=== PATIENT | female | born 1985 | race Caucasian/White ===

== ENCOUNTER 2017-06-29 21:23 | Emergency (ER) | payer BC, OTHER ==
[2017-06-29 21:43] VITALS: RESP 18
--- NOTE | 2017-06-29 21:50 | ED ---
General Adult HPI - General Chief complaint: Syncope Stated complaint: Syncope Time Seen by Provider: 06/29/17 21:49 Source: patient Mode of arrival: ambulatory Limitations: no limitations - History of Present Illness Initial comments: Apoorva is a previously healthy 32-year-old female who presents the emergency department today for evaluation after syncopal episode that occurred at [facility] earlier in the evening. Patient reports that she had a very busy day at work today, she reports that she was running around all day and never had an opportunity to eat and doesn't believe she drink much throughout the day. This evening she agreed to accompany her sister and her sister's children to buddhism for rash Tuesday. Patient states that she is feeling quite fatigued but decided to go to buddhism and she had promised her family she would. Patient reports that she was at buddhism, they were kneeling in the buddhism. When she began to feel very lightheaded and nauseated. Patient advised her niece that she felt like she was given throw up and the patient's sister leaned over to check on her. At that time the patient had an apparent syncopal episode in which she slumped to her side and was assisted to the ground. Patient was immediately assisted by multiple bystanders one of which reported that he was a coagulating bath operator. Patient sister reports that the patient appeared very blue and didn' t seem to be breathing, she states that the coagulating bath operator's lap the patient and the face and the patient immediately took a deep breath and then asked why everybody was standing around her. Patient reports that she recalls kneeling at the pew and recalls waking up but does not recall passing out. Patient does have a history of syncopal episode in the past, however this was attributed with heat exhaustion. Patient reports that after syncopal episode they made the decision to leave buddhism, they stopped at [place] and she had to [employer] [place]. They then went to her sister's house where they dropped off her sister's children. At that time the patient made the decision not to come to the hospital because she felt well. However the patient's mother who is a nurse called the sister and advised her to bring the patient to the emergency department for further evaluation. Patient was reluctantly brought here by her sister. Patient reports a prior to the event she did not experience any chest pain, palpitations, shortness of breath or diaphoresis. She reports that she felt nauseated but did not vomit. Patient denies any personal cardiac history. Her sister states that mother told them that the patient was born with the heart murmur, patient has never had this followed up on. Patient is not on any estrogen therapy, she has no history of PE or DVTs. She has no recent long trips or immobilization. She does report a family history of her mother having developed a DVT after her leg was immobilized, her mother has no history of unprovoked DVTs or history of clotting disorder they are aware of. - Related Data Home Medications Medication Instructions Recorded Confirmed No Known Home Medications [No 06/29/17 06/29/17 Known Home Medications] Allergies Allergy/AdvReac Type Severity Reaction Status Date / Time bee venom protein (honey bee) Allergy Swelling Verified 06/29/17 22:13 Review of Systems ROS Statement: Those systems with pertinent positive or pertinent negative responses have been documented in the HPI. ROS Other: All systems not noted in ROS Statement are negative. Constitutional: Denies: fever Eyes: Denies: vision change ENT: Denies: throat pain Respiratory: Denies: cough, dyspnea Cardiovascular: Denies: chest pain, palpitations, dyspnea on exertion, orthopnea Endocrine: Denies: fatigue Gastrointestinal: Reports: nausea. Denies: abdominal pain, vomiting Genitourinary: Denies: dysuria, abnormal menses Musculoskeletal: Denies: back pain Skin: Denies: rash, lesions Neurological: Reports: headache, other (syncope). Denies: numbness, paresthesias, confusion, abnormal gait, vertigo Psychiatric: Denies: anxiety, depression Hematological/Lymphatic: Denies: easy bleeding Past Medical History Additional Past Medical History / Comment(s): murmur, palpitation History of Any Multi-Drug Resistant Organisms: None Reported Past Surgical History: No Surgical Hx Reported Past Psychological History: No Psychological Hx Reported Smoking Status: Current every day smoker Past Alcohol Use History: None Reported Past Drug Use History: None Reported, Unable to Obtain General Exam Limitations: no limitations General appearance: alert, in no apparent distress Head exam: Present: atraumatic, normocephalic Eye exam: Present: normal appearance, PERRL ENT exam: Present: normal exam Neck exam: Present: normal inspection. Absent: tenderness, meningismus, lymphadenopathy Respiratory exam: Present: normal lung sounds bilaterally. Absent: respiratory distress Cardiovascular Exam: Present: regular rate, normal rhythm, systolic murmur GI/Abdominal exam: Present: soft. Absent: distended, tenderness, guarding, rebound Rectal exam: Present: deferred Extremities exam: Present: normal inspection, full ROM Back exam: Present: normal inspection, full ROM Neurological exam: Present: alert, oriented X3, CN II-XII intact. Absent: altered, motor sensory deficit Psychiatric exam: Present: normal affect, normal mood Skin exam: Present: warm, dry Course Vital Signs 06/29/17 06/29/17 06/30/17 21:37 23:29 00:20 Temperature 97.6 F 98.2 F Pulse Rate 84 76 83 Respiratory 18 18 18 Rate Blood Pressure 118/65 127/56 113/72 O2 Sat by Pulse 98 98 99 Oximetry Medical Decision Making - Medical Decision Making Patient was seen and evaluated, history was obtained from the patient and her sister Vital signs were reviewed EKG reveals a sinus rhythm with a rate of 86, normal axis, normal intervals, no acute ST elevations or depressions. There is noted to be atrial enlargement. At the time of initial evaluation patient is in no acute distress. Is been a number of hours since her syncopal event. She has eaten a large meal and is resting comfortably now. Per patient's mother's request labs including a troponin were ordered. Labs were reviewed, troponin negative, there are no significant abnormalities on the labs I advised the patient that considering that she has a murmur and has never seen cardiology or had an echo she needs to follow up with primary care for referral to cardiology. 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 I advised the patient that she should take tomorrow off work and make sure she gets admitted sleep. I discussed with her the importance of hydration. Advised to return to the emergency department for any recurrent episodes of syncope. All questions pertaining to care were answered to the best my ability the patient was discharged home in stable condition. - Lab Data Result diagrams: 06/29/17 22:54 06/29/17 22:54 Lab Results 06/29/17 06/29/17 06/29/17 Range/Units 22:54 22:54 22:54 WBC 9.9 (3.8-10.6) k/uL RBC 5.36 (3.80-5.40) m/uL Hgb 15.8 (11.4-16.0) gm/dL Hct 48.4 H (34.0-46.0) % MCV 90.3 (80.0-100.0) fL MCH 29.5 (25.0-35.0) pg MCHC 32.7 (31.0-37.0) g/dL RDW 13.1 (11.5-15.5) % Plt Count 341 (150-450) k/uL Neutrophils % 75 % Lymphocytes % 17 % Monocytes % 5 % Eosinophils % 2 % Basophils % 1 % Neutrophils # 7.4 (1.3-7.7) k/uL Lymphocytes # 1.6 (1.0-4.8) k/uL Monocytes # 0.5 (0-1.0) k/uL Eosinophils # 0.2 (0-0.7) k/uL Basophils # 0.1 (0-0.2) k/uL Sodium 141 (137-145) mmol/L Potassium 4.4 (3.5-5.1) mmol/L Chloride 103 (98-107) mmol/L Carbon Dioxide 24 (22-30) mmol/L Anion Gap 14 mmol/L BUN 16 (7-17) mg/dL Creatinine 0.80 (0.52-1.04) mg/dL Est GFR (MDRD) Af Amer >60 (>60 ml/min/1.73 sqM) Est GFR (MDRD) Non-Af >60 (>60 ml/min/1.73 sqM) Glucose 97 (74-99) mg/dL Calcium 10.1 (8.4-10.2) mg/dL Troponin I (0.000-0.034) ng/mL Urine Color Urine Appearance (Clear) Urine pH (5.0-8.0) Ur Specific [place] (1.001-1.035) Urine Protein (Negative) Urine Glucose (UA) (Negative) Urine Ketones (Negative) Urine Blood (Negative) Urine Nitrite (Negative) Urine Bilirubin (Negative) Urine Urobilinogen (<2.0) mg/dL Ur Leukocyte Esterase (Negative) Urine RBC (0-5) /hpf Urine WBC (0-5) /hpf Ur Squamous Epith Cells (0-4) /hpf Urine Mucus (None) /hpf Urine HCG, Qual Not Detected (Not Detectd) 02/14/18 02/14/18 Range/Units 22:54 22:54 WBC (3.8-10.6) k/uL RBC (3.80-5.40) m/uL Hgb (11.4-16.0) gm/dL Hct (34.0-46.0) % MCV (80.0-100.0) fL MCH (25.0-35.0) pg MCHC (31.0-37.0) g/dL RDW (11.5-15.5) % Plt Count (150-450) k/uL Neutrophils % % Lymphocytes % % Monocytes % % Eosinophils % % Basophils % % Neutrophils # (1.3-7.7) k/uL Lymphocytes # (1.0-4.8) k/uL Monocytes # (0-1.0) k/uL Eosinophils # (0-0.7) k/uL Basophils # (0-0.2) k/uL Sodium (137-145) mmol/L Potassium (3.5-5.1) mmol/L Chloride (98-107) mmol/L Carbon Dioxide (22-30) mmol/L Anion Gap mmol/L BUN (7-17) mg/dL Creatinine (0.52-1.04) mg/dL Est GFR (MDRD) Af Amer (>60 ml/min/1.73 sqM) Est GFR (MDRD) Non-Af (>60 ml/min/1.73 sqM) Glucose (74-99) mg/dL Calcium (8.4-10.2) mg/dL Troponin I <0.012 (0.000-0.034) ng/mL Urine Color Yellow Urine Appearance Cloudy H (Clear) Urine pH 5.5 (5.0-8.0) Ur Specific [place] 1.025 (1.001-1.035) Urine Protein Trace H (Negative) Urine Glucose (UA) Negative (Negative) Urine Ketones Negative (Negative) Urine Blood Moderate H (Negative) Urine Nitrite Negative (Negative) Urine Bilirubin Negative (Negative) Urine Urobilinogen 2.0 (<2.0) mg/dL Ur Leukocyte Esterase Negative (Negative) Urine RBC 5 (0-5) /hpf Urine WBC 5 (0-5) /hpf Ur Squamous Epith Cells 6 H (0-4) /hpf Urine Mucus Moderate H (None) /hpf Urine HCG, Qual (Not Detectd) Disposition Clinical Impression: Fainting spell Disposition: HOME SELF-CARE Condition: Good Referrals: Robbi Snell MD [STAFF PHYSICIAN] - 1-2 days Laney Young MD [REFERRING] - 1-2 days Evie Toussaint MD [REFERRING] - 1-2 days Time of Disposition: 23:54
[2017-06-29 23:07] LABS: Basophils # (A) 0.1 k/uL (0-0.2); Basophils % (A) 1 %; Eosinophils # (A) 0.2 k/uL (0-0.7); Eosinophils % (A) 2 %; HCT 48.4 % (34.0-46.0); HGB 15.8 gm/dL (11.4-16.0); Lymphocytes # (A) 1.6 k/uL (1.0-4.8); Lymphocytes % (A) 17 %; MCH 29.5 pg (25.0-35.0); MCHC 32.7 g/dL (31.0-37.0); MCV 90.3 fL (80.0-100.0); Mean Platelet Volume 6.9; Monocytes # (A) 0.5 k/uL (0-1.0); Monocytes % (A) 5 %; Neutrophils # (A) 7.4 k/uL (1.3-7.7); Neutrophils % (A) 75 %; Platelet Count 341 k/uL (150-450); RBC 5.36 m/uL (3.80-5.40); RDW 13.1 % (11.5-15.5); WBC 9.9 k/uL (3.8-10.6)
[2017-06-29 23:11] LABS: Appearance,Urine Cloudy (Clear); Bilirubin,Urine Negative (Negative); Blood,Urine Moderate (Negative); Color,Urine Yellow; Glucose,Urine (UA) Negative (Negative); Ketones,Urine Negative (Negative); Leukocyte Esterase,Urine Negative (Negative); Mucus,Urine Moderate /hpf; Nitrite,Urine Negative (Negative); PH, Urine 5.5 (5.0-8.0); Protein,Urine Trace (Negative); RBC,Urine 5 /hpf (0-5); Specific Gravity,Urine 1.025 (1.001-1.035); Squamous Epithelial Cell,Urine 6 /hpf (0-4); WBC,Urine 5 /hpf (0-5)
[2017-06-29 23:15] LABS: Anion Gap 14 mmol/L; Blood Urea Nitrogen 16 mg/dL (7-17); Calcium 10.1 mg/dL (8.4-10.2); Carbon Dioxide 24 mmol/L (22-30); Chloride 103 mmol/L (98-107); Glucose 97 mg/dL (74-99); Potassium 4.4 mmol/L (3.5-5.1); Sodium 141 mmol/L (137-145)
[2017-06-30 00:22] VITALS: BP 113/72; PULSE 83; TEMP 98.2
== END 2017-06-30 00:22 | disposition home or self-care (01) ==
LOC: EC 21:23
DX: R55 Syncope and collapse (principal); I51.7 Cardiomegaly; R01.1 Cardiac murmur, unspecified; R42 Dizziness and giddiness; R11.0 Nausea; F17.200 Nicotine dependence, unspecified, uncomplicated; Z91.018 Allergy to other foods
CPT/HCPCS: 36415; 80048; 81001; 81025; 84484; 85025; 93005; 99284

== ENCOUNTER 2019-04-06 07:54 | Emergency (ER) | payer BC, OTHER ==
[2019-04-06 08:00] VITALS: TEMP 98.2
[2019-04-06] MEDS ORDERED: SODIUM CHLORIDE 0.9% 1,000 ML IV ONE (08:03)
--- NOTE | 2019-04-06 08:05 | ED ---
Abdominal Pain HPI - General Chief Complaint: Abdominal Pain Stated Complaint: Abd Pain Time Seen by Provider: 04/06/19 08:04 Source: patient Mode of arrival: ambulatory Limitations: no limitations - History of Present Illness Initial Comments: 33-year-old female with hx of previous [place] presenting today for chief complaint of left mid to lower abdominal pain. Patient states for the past day since yesterday evening she has had left lower abdominal discomfort. She states it is not in the pelvic region denies vaginal bleeding or discharge. Patient denies nausea chest pain shortness of breath. Denies diarrhea melena hematochezia. Patient denies fever, history of diverticulitis. Patient denies and no other complaints. Patient describes the pain is sharp reproducible when she pushes on the abdomen to the left of the bellybutton. Denies any radiation. Upon arrival patient VS stable she appears well there is no distress. - Related Data Home Medications Medication Instructions Recorded Confirmed Amethia-Lo Control 1 tab PO DAILY 04/06/19 04/06/19 Ibuprofen [Advil] 400 mg PO Q8HR PRN 04/06/19 04/06/19 Allergies Allergy/AdvReac Type Severity Reaction Status Date / Time bee venom protein (honey bee) Allergy Swelling Verified 04/06/19 08:47 Review of Systems ROS Statement: Those systems with pertinent positive or pertinent negative responses have been documented in the HPI. ROS Other: All systems not noted in ROS Statement are negative. Past Medical History Past Medical History: Myocardial Infarction ([place]) Additional Past Medical History / Comment(s): ,murmur, palpitation, Migraines, History of Any Multi-Drug Resistant Organisms: None Reported Past Surgical History: No Surgical Hx Reported Past Psychological History: No Psychological Hx Reported Smoking Status: Former smoker Past Alcohol Use History: None Reported Past Drug Use History: None Reported, Unable to Obtain General Exam - General Exam Comments Initial Comments: General: The patient is awake and alert, in no distress, and does not appear acutely ill. Eye: +3 mm pupils are equal, round and reactive to light, extra-ocular movements are intact. No nystagmus. There is normal conjunctiva bilaterally. No signs of icterus. Ears, nose, mouth and throat: There are moist mucous membranes and no oral lesions. Neck: The neck is supple, there is no tenderness or JVD. Cardiovascular: There is a regular rate and rhythm. Murmur, no rub or gallop is appreciated. Respiratory: Lungs are clear to auscultation, respirations are non-labored, breath sounds are equal. No wheezes, stridor, rales, or rhonchi. Gastrointestinal: Soft, non-distended, tender to palpation just to the left of umbilicus, the remaining abdomen is without masses or organomegaly noted. There is no rebound or guarding present. Musculoskeletal: Normal ROM, no tenderness. Strength 5/5. Sensation intact. Radial pulses equal bilaterally 2+. Neurological: A&O x 3. CN II-XII intact grossly, There are no obvious motor or sensory deficits. Coordination appears grossly intact. Speech is normal. Skin: Skin is warm and dry and no rashes or lesions are noted. No LE edema. Psychiatric: Cooperative, appropriate mood & affect, normal judgment. Limitations: no limitations Course Vital Signs 04/06/19 04/06/19 07:57 09:55 Temperature 98.2 F Pulse Rate 88 71 Respiratory 20 16 Rate Blood Pressure 142/86 111/83 O2 Sat by Pulse 98 98 Oximetry - Reevaluation(s) Reevaluation #1: Upon reevaluation patient's pain controlled 2. Small bowel no distress discussed CT findings patient at this time is agreeable discharge with return parameters and outpatient primary care follow-up Medical Decision Making - Medical Decision Making 33-year-old female presenting today for chief complaint of abdominal pain. Mid left-sided abdominal pain. No lower pelvic pain. CT no acute findings. Vital signs stable pain controlled in the ER. It is reproducible on abdominal exam however there is no rebound or guarding or signs acute abdomen. At this time I feel patient is stable for discharge with outpatient primary care follow-up. Return parameters were discussed patient verbalized understanding is agreeable with discharge and return parameters discussed case attending provider including patient's history Dr. Brennan is agreeable care plan at this time - Lab Data Result diagrams: 04/06/19 08:20 04/06/19 08:20 Lab Results 04/06/19 04/06/19 04/06/19 Range/Units 08:20 08:20 08:20 WBC 5.1 (3.8-10.6) k/uL RBC 4.98 (3.80-5.40) m/uL Hgb 15.3 (11.4-16.0) gm/dL Hct 45.3 (34.0-46.0) % MCV 90.8 (80.0-100.0) fL MCH 30.7 (25.0-35.0) pg MCHC 33.8 (31.0-37.0) g/dL RDW 12.5 (11.5-15.5) % Plt Count 295 (150-450) k/uL Neutrophils % 47 % Lymphocytes % 38 % Monocytes % 7 % Eosinophils % 4 % Basophils % 3 % Neutrophils # 2.4 (1.3-7.7) k/uL Lymphocytes # 1.9 (1.0-4.8) k/uL Monocytes # 0.4 (0-1.0) k/uL Eosinophils # 0.2 (0-0.7) k/uL Basophils # 0.2 (0-0.2) k/uL Sodium 140 (137-145) mmol/L Potassium 4.5 (3.5-5.1) mmol/L Chloride 108 H (98-107) mmol/L Carbon Dioxide 20 L (22-30) mmol/L Anion Gap 12 mmol/L BUN 21 H (7-17) mg/dL Creatinine 0.70 (0.52-1.04) mg/dL Est GFR (CKD-EPI)AfAm >90 (>60 ml/min/1.73 sqM) Est GFR (CKD-EPI)NonAf >90 (>60 ml/min/1.73 sqM) Glucose 91 (74-99) mg/dL Calcium 9.8 (8.4-10.2) mg/dL Total Bilirubin 0.7 (0.2-1.3) mg/dL AST 19 (14-36) U/L ALT 29 (9-52) U/L Alkaline Phosphatase 38 (38-126) U/L Total Protein 7.2 (6.3-8.2) g/dL Albumin 4.3 (3.5-5.0) g/dL Lipase 61 (23-300) U/L Urine Color Urine Appearance (Clear) Urine pH (5.0-8.0) Ur Specific [place] (1.001-1.035) Urine Protein (Negative) Urine Glucose (UA) (Negative) Urine Ketones (Negative) Urine Blood (Negative) Urine Nitrite (Negative) Urine Bilirubin (Negative) Urine Urobilinogen (<2.0) mg/dL Ur Leukocyte Esterase (Negative) Urine RBC (0-5) /hpf Urine WBC (0-5) /hpf Ur Squamous Epith Cells (0-4) /hpf Urine Bacteria (None) /hpf Urine Mucus (None) /hpf Urine HCG, Qual Not Detected (Not Detectd) 04/06/19 Range/Units 08:20 WBC (3.8-10.6) k/uL RBC (3.80-5.40) m/uL Hgb (11.4-16.0) gm/dL Hct (34.0-46.0) % MCV (80.0-100.0) fL MCH (25.0-35.0) pg MCHC (31.0-37.0) g/dL RDW (11.5-15.5) % Plt Count (150-450) k/uL Neutrophils % % Lymphocytes % % Monocytes % % Eosinophils % % Basophils % % Neutrophils # (1.3-7.7) k/uL Lymphocytes # (1.0-4.8) k/uL Monocytes # (0-1.0) k/uL Eosinophils # (0-0.7) k/uL Basophils # (0-0.2) k/uL Sodium (137-145) mmol/L Potassium (3.5-5.1) mmol/L Chloride (98-107) mmol/L Carbon Dioxide (22-30) mmol/L Anion Gap mmol/L BUN (7-17) mg/dL Creatinine (0.52-1.04) mg/dL Est GFR (CKD-EPI)AfAm (>60 ml/min/1.73 sqM) Est GFR (CKD-EPI)NonAf (>60 ml/min/1.73 sqM) Glucose (74-99) mg/dL Calcium (8.4-10.2) mg/dL Total Bilirubin (0.2-1.3) mg/dL AST (14-36) U/L ALT (9-52) U/L Alkaline Phosphatase (38-126) U/L Total Protein (6.3-8.2) g/dL Albumin (3.5-5.0) g/dL Lipase (23-300) U/L Urine Color Yellow Urine Appearance Cloudy H (Clear) Urine pH 6.0 (5.0-8.0) Ur Specific [place] 1.041 H (1.001-1.035) Urine Protein 1+ H (Negative) Urine Glucose (UA) Negative (Negative) Urine Ketones 2+ H (Negative) Urine Blood Small H (Negative) Urine Nitrite Negative (Negative) Urine Bilirubin Negative (Negative) Urine Urobilinogen 2.0 (<2.0) mg/dL Ur Leukocyte Esterase Negative (Negative) Urine RBC 15 H (0-5) /hpf Urine WBC 2 (0-5) /hpf Ur Squamous Epith Cells 25 H (0-4) /hpf Urine Bacteria Rare H (None) /hpf Urine Mucus Few H (None) /hpf Urine HCG, Qual (Not Detectd) Disposition Clinical Impression: Left lower quadrant abdominal pain Disposition: HOME SELF-CARE Condition: Good Instructions (If sedation given, give patient instructions): Abdominal Pain (ED) Additional Instructions: Please use medication as discussed. Please follow-up with family doctor in the next 2 days.. Please return to emergency room if the symptoms increase or worsen or for any other concerns. Is patient prescribed a controlled substance at d/c from ED?: No Referrals: Jose Hitchcock MD [Primary Care Provider] - 1-2 days Time of Disposition: 09:53
[2019-04-06] MEDS ORDERED: MORPHINE SULFATE 4 MG/ML SYRINGE IVP STA (08:12)
[2019-04-06] MEDS ORDERED: SODIUM CHLORIDE 0.9% 1,000 ML IV SCH (08:15)
[2019-04-06] MEDS ORDERED: ONDANSETRON 4 MG/2 ML VIAL IVP STA (08:36)
[2019-04-06 08:45] LABS: Basophils # (A) 0.2 k/uL (0-0.2); Basophils % (A) 3 %; Eosinophils # (A) 0.2 k/uL (0-0.7); Eosinophils % (A) 4 %; HCT 45.3 % (34.0-46.0); HGB 15.3 gm/dL (11.4-16.0); Lymphocytes # (A) 1.9 k/uL (1.0-4.8); Lymphocytes % (A) 38 %; MCH 30.7 pg (25.0-35.0); MCHC 33.8 g/dL (31.0-37.0); MCV 90.8 fL (80.0-100.0); Mean Platelet Volume 6.7; Monocytes # (A) 0.4 k/uL (0-1.0); Monocytes % (A) 7 %; Neutrophils # (A) 2.4 k/uL (1.3-7.7); Neutrophils % (A) 47 %; Platelet Count 295 k/uL (150-450); RBC 4.98 m/uL (3.80-5.40); RDW 12.5 % (11.5-15.5); WBC 5.1 k/uL (3.8-10.6)
[2019-04-06 08:55] LABS: ALT 29 U/L (9-52); AST 19 U/L (14-36); African American GFR (CKD) >90 (>60 ml/min/1.73 sqM); Albumin 4.3 g/dL (3.5-5.0); Alkaline Phosphatase 38 U/L (38-126); Anion Gap 12 mmol/L; Blood Urea Nitrogen 21 mg/dL (7-17); Calcium 9.8 mg/dL (8.4-10.2); Carbon Dioxide 20 mmol/L (22-30); Chloride 108 mmol/L (98-107); Glucose 91 mg/dL (74-99); Non-African American GFR(CKD) >90 (>60 ml/min/1.73 sqM); Potassium 4.5 mmol/L (3.5-5.1); Sodium 140 mmol/L (137-145); Total Bilirubin 0.7 mg/dL (0.2-1.3); Total Protein 7.2 g/dL (6.3-8.2)
[2019-04-06 09:06] LABS: Appearance,Urine Cloudy (Clear); Bacteria,Urine Rare /hpf; Bilirubin,Urine Negative (Negative); Blood,Urine Small (Negative); Color,Urine Yellow; Glucose,Urine (UA) Negative (Negative); Ketones,Urine 2+ (Negative); Leukocyte Esterase,Urine Negative (Negative); Mucus,Urine Few /hpf; Nitrite,Urine Negative (Negative); Protein,Urine 1+ (Negative); RBC,Urine 15 /hpf (0-5); Specific Gravity,Urine 1.041 (1.001-1.035); Squamous Epithelial Cell,Urine 25 /hpf (0-4)
--- NOTE | 2019-04-06 09:40 | CT ---
EXAMINATION TYPE: CT abdomen pelvis w con DATE OF EXAM: 04/06/2019 COMPARISON: None HISTORY: Abdominal pain, left lower quadrant pain CT DLP: 870.2 mGycm CONTRAST: CT scan of the abdomen and pelvis is performed without Oral Contrast and with IV Contrast, patient in jected with 100 mL of Isovue 300. FINDINGS: LUNG BASES-: No visible nodule. No infiltrate. LIVER/GB: No calcified gallstones. No space occupying hepatic lesion. Biliary tree is of normal ca liber. PANCREAS: No inflammation. No distinct mass. SPLEEN: No splenic enlargement. No lesion seen. ADRENALS: No nodule. No thickening. KIDNEYS/BLADDER: No hydronephrosis. No nephrolithiasis. No distinct renal mass. Urinary bladder g rossly unremarkable. BOWEL: Normal appendix. Normal bowel caliber. No inflammation. GENITAL ORGANS: No gross abnormality. LYMPH NODES: No greater than 1cm abdominal or pelvic lymph nodes are appreciated. AORTA: No significant abnormality. OSSEOUS STRUCTURES: No significant abnormality is seen. OTHER: No significant additional abnormality is seen. IMPRESSION: 1. No distinct abnormality to account for the patient's symptoms.
[2019-04-06 10:05] VITALS: BP 111/83; PULSE 71; RESP 16
== END 2019-04-06 09:55 | disposition home or self-care (01) ==
LOC: EC 07:54
DX: R10.32 Left lower quadrant pain (principal); I25.2 Old myocardial infarction; Z87.891 Personal history of nicotine dependence; Z79.3 Long term (current) use of hormonal contraceptives; Z91.048 Other nonmedicinal substance allergy status
CPT/HCPCS: 36415; 80053; 83690; 85025; 81001; 81025; 74177; 99284; 96374; 96375; 96361; J2270; J2405; Q9967

== ENCOUNTER 2020-02-27 06:20 | Day surgery (SDC) | payer OTHER ==
[2020-02-25 15:08] VITALS: BMI 27.4
--- NOTE | 2020-02-26 15:08 | P.HPOB ---
History of Present Illness H&P Date: 02/26/20 Chief Complaint: Menorrhagia with irregular cycle, family planning This is a 34 y.o. female, 0, who presents for dilatation and curettage with hysteroscopy and Novasure endometrial ablation along with laparoscopic bilateral tubal ligation via fulgaration due to menorrhagia with irregular cycle and family planning. She wants permanent sterilization. She has a history of menstrual migraines. We attempted to control her migraines with continuous control pills, but now she is bleeding at least 3 times during a 3 month period of time. Sometimes it only last 3 days, and sometimes it is 7+ days with clots and cramping. Her bleeding is unpredictable. She would like permanent surgical treatment to control her bleeding. OB Hx: G0. Sign Wirer Hx: No recent STDs, hx of trichomonas in past. Using BCPs for control. 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 Single, but in a senior care relationship. Review of Systems Constitutional: Denies chills, Denies fever Eyes: denies blurred vision, denies pain Ears, nose, mouth and throat: Denies sore throat Cardiovascular: Denies chest pain, Denies shortness of breath Respiratory: Denies cough Gastrointestinal: Denies abdominal pain, Denies diarrhea, Denies nausea, Denies vomiting Genitourinary: Reports menorrhagia, Reports pelvic pain, Denies dysuria, Denies hematuria Menstruation: Reports menses 8 or > days, Reports menses variable, Reports period heavy Musculoskeletal: Reports low back pain Integumentary: Denies pruritus, Denies rash Neurological: Reports headaches Psychiatric: Denies anxiety, Denies depression Endocrine: Denies fatigue Past Medical History Additional Past Medical History / Comment(s): "extremely heavy menses",murmur, palpitation, Migraines History of Any Multi-Drug Resistant Organisms: None Reported Past Surgical History: No Surgical Hx Reported Additional Past Surgical History / Comment(s): dental procedure Past Anesthesia/Blood Transfusion Reactions: No Reported Reaction Past Psychological History: No Psychological Hx Reported Smoking Status: Never smoker Past Alcohol Use History: Rare Past Drug Use History: None Reported - Past Family History Father Family Medical History: No Reported History Mother Family Medical History: Deep Vein Thrombosis (DVT) Additional Family Medical History / Comment(s): DVT post leg fracture Medications and Allergies Home Medications Medication Instructions Recorded Confirmed Type Amethia-Lo Control 1 tab PO QAM 04/06/19 02/27/20 History Allergies Allergy/AdvReac Type Severity Reaction Status Date / Time bee venom protein (honey bee) Allergy Swelling Verified 02/27/20 06:50 Exam Osteopathic Statement: *. No significant issues noted on an osteopathic structural exam other than those noted in the History and Physical/Consult. Intake and Output 02/25/20 02/26/20 02/26/20 22:59 06:59 14:59 Other: Weight 68.039 kg HEENT: within normal limits Heart: regular rate and rhythm Lungs: clear to auscultation bilaterally Abdomen: soft, non-tender Pelvic: uterus retroverted, non-tender, no adnexal masses or tenderness Extremities: neg. Marino's Assessment and Plan (1) Menorrhagia with irregular cycle Current Visit: No Status: Acute Code(s): N92.1 - EXCESSIVE AND FREQUENT MENSTRUATION WITH IRREGULAR CYCLE SNOMED Code(s): 313785161 (2) Family planning Current Visit: No Status: Acute Code(s): Z30.09 - ENCOUNTER FOR OT GENERAL CNSL AND ADVICE ON CONTRACEPTION SNOMED Code(s): 211313905 Plan: Proceed with dilatation and curettage with hysteroscopy and Novasure endometrial ablation with laparoscopic bilateral tubal ligation via fulgaration. I have discussed the risks, benefits, and alternative therapies for the above- mentioned procedure and for both sedation/anesthesia as well as necessary blood products administration, if indicated, as they pertain to this patient. The patient has indicated her understanding and acceptance of the risks and pro cedures discussed.
[~2020-02-27 06:20] MED LIST: DEXAMETHASONE SOD PHOSPHATE 10 MG/ML 1 ML VIAL IV ONE; HYDROmorphone 0.5 MG/0.5 ML SYRINGE IVP PRN; LACTATED RINGERS 1,000 ML IV SCH; LIDOCAINE 1% (10MG/ML) FOR IV START INTRADERMA PRN; MIDAZOLAM 2 MG/2 ML VIAL IV PRN; Pre Op ABX Message 1 EACH MISC MISCELLANE ONE
[2020-02-27] MEDS ORDERED: SCOPOLAMINE 1.5MG/72HR PATCH TRANSDERM ONE (07:08)
[2020-02-27] MEDS: ONDANSETRON 4 MG/2 ML VIAL IVP ONE ×2 (07:08→09:12)
[2020-02-27] MEDS ORDERED: GLYCOPYRROLATE 0.2 MG/ML 2 ML VIAL ONE (07:34)
[2020-02-27] MEDS ORDERED: KETOROLAC 15 MG/ML 1 ML VIAL ONE (07:34)
[2020-02-27] MEDS ORDERED: ROCURONIUM 10 MG/ML (10 ML VIAL) IV ONE (07:34)
[2020-02-27] MEDS ORDERED: NEOSTIGMINE 1 MG/ML 10 ML VIAL ONE (07:34)
[2020-02-27] MEDS ORDERED: LIDOCAINE 1% INJ 10MG/ML (20 ML MDV) ONE (07:34)
[2020-02-27] MEDS ORDERED: fentaNYL (PF) 50 MCG/ML 2 ML AMP ONE (07:34)
[2020-02-27] MEDS ORDERED: HYDROmorphone (PF) 1 MG/ML ONE (07:34)
[2020-02-27] MEDS ORDERED: MIDAZOLAM 2 MG/2 ML VIAL ONE (07:34)
[2020-02-27] MEDS ORDERED: PROPOFOL 10 MG/ML 20 ML VIAL IV ONE (07:34)
[2020-02-27] MEDS ORDERED: SUCCINYLCHOLINE CHLORIDE 100 MG/5 ML SYR IV ONE (07:34)
[2020-02-27] MEDS ORDERED: BUPIVACAINE (PF) 0.25% 30 ML VIAL SQ ONE ×2 (08:25→08:35)
--- NOTE | 2020-02-27 08:40 | P.OP ---
Date of Procedure: 02/27/20 Preoperative Diagnosis: Menorrhagia with irregular cycle, family planning Postoperative Diagnosis: Same Procedure(s) Performed: Dilation and curettage with hysteroscopy and NovaSure endometrial ablation Laparoscopic bilateral tubal ligation via fulguration Anesthesia: JERMAINE Surgeon: Leonila Penaloza Estimated Blood Loss (ml): 10 Pathology: other (Endometrial curettings) Condition: stable Disposition: same day Indications for Procedure: This is a 34 y.o. female, 0, who presents for dilatation and curettage with hysteroscopy and Novasure endometrial ablation along with laparoscopic bilateral tubal ligation via fulgaration due to menorrhagia with irregular cycle and family planning. She wants permanent sterilization. She has a history of menstrual migraines. We attempted to control her migraines with continuous control pills, but now she is bleeding at least 3 times during a 3 month period of time. Sometimes it only last 3 days, and sometimes it is 7+ days with clots and cramping. Her bleeding is unpredictable. She would like permanent surgical treatment to control her bleeding. Operative Findings: Uterus is sounded to 8 cm. Cervix is sounded to 3 cm. Upon hysteroscopy, a fairly normal appearance was noted and both tubal ostia were visualized. Minimal amount of endometrial curettings are obtained. Uterus is anteverted. Upon laparoscopy, a small uterine fibroid is noted in the right fundal region and a small fibroid is also noted in the posterior lower uterine segment area. There is a simple-appearing cyst on the left ovary, approximately 3 cm. The right ovary appears normal. Both tubes appear normal. The appendix is visualized and appears normal. The gallbladder also appears normal. Description of Procedure: The patient is taken to the operating room. She is placed in the dorsal lithotomy position after general anesthesia was given. She is prepped and draped in the normal sterile fashion. Bladder is drained with a catheter and then removed. Pelvic exam is performed under anesthesia. Uterus is found to be Anteverted with no adnexal masses. She is placed in slight Trendelenburg position. A right angle retractor is used to visualize the cervix. The anterior lip of the cervix is grasped with a single-tooth tenaculum. Cervix is sounded to 3 cm. Uterus is sounded to 5 cm. Cervix is gently dilated with Armstrong dilators until a hysteroscope could be passed. Hysteroscopy is performed using normal saline. The above noted findings are noted. Next a polyp forceps is introduced. A scant amount of tissue was obtained. Next medium-sized size sharp curette was placed. A minimal amount of endometrial curettings were obtained. Next NovaSure array was inserted into the endometrial cavity. Length was set at 5 cm and width was determined to be 2.5 cm. Next cavity assessment was completed and passed on the first try. Next NovaSure array was fired at 69 W for 58 seconds. Next the array was removed, inspected and then discarded. Next the hysteroscope was reinserted. Uniform charring was noted. Pictures were taken. Hysteroscope was removed. A kroner uterine manipulator is then inserted through the cervix and the balloon is inflated. Single-tooth tenaculum was removed from the anterior lip of the cervix. Minimal bleeding was noted. All other instruments removed from the vagina. Gloves are changed and attention is turned to the abdomen. A small stab incision was made with a scalpel in the infraumbilical fold. A towel clip was placed above the umbilicus for retraction. A 5 mm disposable bladeless trocar was then inserted into the peritoneal cavity under direct visualization. Once inside, pneumoperitoneum was achieved with CO2 gas. The insert was removed and the camera was placed. Intraperitoneal placement was confirmed. No bleeding was noted. Next the patient was placed in Trendelenburg position. A small stab incision was made suprapubically and a 5 mm disposable bladeless trocar was inserted into the peritoneal cavity under direct visualization. Once inside pelvic contents were inspected. The above noted findings are made and pictures are taken. Next a bipolar Kleppinger instrument was placed through the inferior trocar and the midportion of each tube was brought away from other structures and completely fulgurated on approximate 2-3 cm segment of each tube. Excellent hemostasis was noted. Pictures were taken. Pneumoperitoneum was released after the inferior trocar was removed under direct visualization. The upper trocar was then removed. The skin incisions were then closed with 4-0 Vicryl suture in a subcuticular fashion. A interrupted stitches placed on the inferior incision for hemostasis. Incisions were then injected with quarter percent Marcaine. Approximately 8 mL were used. Next the kroner uterine manipulator was removed. Minimal bleeding was noted. All sponge and needle counts are correct. The patient is then taken to recovery room in stable condition.
[2020-02-27 09:19] VITALS: TEMP 96.9
[2020-02-27] MEDS ORDERED: diphenhydrAMINE 50 MG/ML 1 ML VIAL IVP ONE (09:42)
[2020-02-27 10:26] VITALS: BP 125/74; PULSE 88; RESP 16
== END 2020-02-27 10:26 | disposition home or self-care (01) ==
LOC: OR 06:20
PROVIDERS: ATTEND Obstetrics & Gynecology
DX: N92.1 Excessive and frequent menstruation with irregular cycle (principal); Z30.2 Encounter for sterilization; D25.9 Leiomyoma of uterus, unspecified; N83.202 Unspecified ovarian cyst, left side; R01.1 Cardiac murmur, unspecified; R00.2 Palpitations; G43.909 Migraine, unspecified, not intractable, without status migrainosus; Z82.49 Family history of ischemic heart disease and other diseases of the circulatory system; Z79.3 Long term (current) use of hormonal contraceptives; Z91.030 Bee allergy status
CPT/HCPCS: 81025; 58563; 58670; J2250; J1200; J1100; J2710; J2405; J2001; J3010; J1170 ×2; J1885; J0330; J2704; 88305

== ENCOUNTER → 2023-05-11 | Outpatient (CLI) | payer BC ==
[2023-05-12 02:21] LABS: Basophils # (A) 0.07 X 10*3/uL (0.00-0.10); Basophils % (A) 1.1 %; Eosinophils # (A) 0.11 X 10*3/uL (0.04-0.35); Eosinophils % (A) 1.7 %; HCT 43.4 % (37.2-46.3); HGB 14.2 g/dL (12.0-15.0); Lymphocytes # (A) 2.31 X 10*3/uL (0.90-5.00); Lymphocytes % (A) 35.9 %; MCH 29.8 pg (27.0-32.0); MCHC 32.7 g/dL (32.0-37.0); MCV 91.2 FL (80.0-97.0); Mean Platelet Volume 10.2 FL (9.5-12.2); Monocytes # (A) 0.66 X 10*3/uL (0.20-1.00); Monocytes % (A) 10.2 %; NRBC Per 100 WBC 0 X 10*3/uL (0.00-0.01); Neutrophils # (A) 3.28 X 10*3/uL (1.80-7.70); Neutrophils % (A) 50.9 %; Platelet Count 319 X 10*3/uL (140-440); RBC 4.76 X 10*6/uL (4.10-5.20); RDW 12.9 % (11.5-14.5); WBC 6.44 X 10*3/uL (4.50-10.00)
[2023-05-12 02:44] LABS: BUN/Creat Ratio 17.71 Ratio (12.00-20.00); Blood Urea Nitrogen 12.4 mg/dL (9.0-27.0); Calcium 9.9 mg/dL (8.7-10.3); Carbon Dioxide 23.6 mmol/L (21.6-31.8); Chloride 103 mmol/L (96-109); Glucose 75 mg/dL (70-110); Potassium 4.7 mmol/L (3.5-5.5); Sodium 141 mmol/L (135-145)
== END | disposition home or self-care (01) ==
LOC: LABPAT 14:47
PROVIDERS: ATTEND Obstetrics & Gynecology
DX: Z01.812 Encounter for preprocedural laboratory examination (principal)
CPT/HCPCS: 80048; 85025

== ENCOUNTER → 2023-05-12 | Outpatient (CLI) | payer BC | END | disposition home or self-care (01) | LOC: LABPAT 14:22 | PROVIDERS: ATTEND Obstetrics & Gynecology | DX: Z01.812 Encounter for preprocedural laboratory examination (principal) | CPT/HCPCS: 86850; 86900; 86901 ==

== ENCOUNTER 2023-05-19 05:39 | Day surgery (SDC) | payer BC, OTHER ==
[2023-05-12 09:48] VITALS: BMI 26.2
--- NOTE | 2023-05-18 12:39 | P.HPOB ---
History of Present Illness H&P Date: 05/18/23 Chief Complaint: Menorrhagia with irregular cycle, post-endometrial ablation syndrome This is a 38 y.o. female, 0, who presents for total laparoscopic hysterectomy with bilateral salpingectomy with Davinci and diagnostic cystoscopy, possible total abdominal hysterectomy with bilateral salpingooophorectomy. She complains of heavy menses lasting 10-14 days. Her menses improved after her endometrial ablation for about 3 months, but now she's back to heavy periods. She wants definitive surgical treatment. 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 Social Hx: Works with [employer] in [employer]. Review of Systems Constitutional: Denies chills, Denies fever Eyes: denies blurred vision, denies pain Ears, nose, mouth and throat: Denies headache, Denies sore throat Cardiovascular: Denies chest pain, Denies shortness of breath Respiratory: Denies cough Gastrointestinal: Denies abdominal pain, Denies diarrhea, Denies nausea, Denies vomiting Genitourinary: Reports dysmenorrhea, Reports menorrhagia, Reports pelvic pain Menstruation: Reports menses 8 or > days, Reports period heavy Integumentary: Denies pruritus, Denies rash Neurological: Denies numbness, Denies weakness Psychiatric: Reports irritability (around menses), Denies anxiety, Denies depression Past Medical History Past Medical History: Myocardial Infarction ([place]) Additional Past Medical History / Comment(s): "Extremely heavy menses". Heart murmur, palpitations. Migraines. Last Myocardial Infarction Date:: 06/2016 History of Any Multi-Drug Resistant Organisms: None Reported Past Surgical History: Tubal Ligation Additional Past Surgical History / Comment(s): Dental procedure, D&C. Past Anesthesia/Blood Transfusion Reactions: No Reported Reaction, Motion Sickness Additional Past Anesthesia/Blood Transfusion Reaction / Comment(s): "Please give as little anesthesia as possible". Past Psychological History: No Psychological Hx Reported Smoking Status: Never smoker Past Alcohol Use History: Rare Past Drug Use History: None Reported - Past Family History Father Family Medical History: No Reported History Mother Family Medical History: Deep Vein Thrombosis (DVT) Additional Family Medical History / Comment(s): DVT post leg fracture. Medications and Allergies Home Medications Medication Instructions Recorded Confirmed Type Ibuprofen [Advil Migraine] 200 mg PO DIRECTED PRN 05/12/23 05/19/23 History Allergies Allergy/AdvReac Type Severity Reaction Status Date / Time bee venom protein (honey bee) Allergy Swelling Verified 05/19/23 05:55 latex Allergy Rash/Hives Verified 05/19/23 05:55 Exam Osteopathic Statement: *. No significant issues noted on an osteopathic structural exam other than those noted in the History and Physical/Consult. Intake and Output 05/17/23 05/18/23 05/18/23 22:59 06:59 14:59 Other: Weight 63.049 kg HEENT: within normal limits Heart: regular rate and rhythm Lungs: clear to auscultation bilaterally Abdomen: soft, non-tender Pelvic: uterus retroverted, non-tender, with 1st degree prolapse, no adnexal masses or tenderness Extremities: neg. Marino's. Assessment and Plan (1) Post endometrial ablation syndrome Current Visit: No Status: Acute Code(s): N99.85 - POST ENDOMETRIAL ABLATION SYNDROME SNOMED Code(s): 620885388 (2) Menorrhagia with irregular cycle Current Visit: No Status: Acute Code(s): N92.1 - EXCESSIVE AND FREQUENT MENSTRUATION WITH IRREGULAR CYCLE SNOMED Code(s): 069033074 Plan: Proceed with total laparoscopic hysterectomy with bilateral salpingectomy with Davinci and diagnostic cystoscopy, possible total abdominal hysterectomy with bilateral salpingooophorectomy. I have discussed the risks, benefits, and alternative therapies for the above- mentioned procedure and for both sedation/anesthesia as well as necessary blood products administration, if indicated, as they pertain to this patient. The patient has indicated her understanding and acceptance of the risks and procedures discussed.
[2023-05-19] MEDS ORDERED: DEXAMETHASONE SOD PHOSPHATE 4 MG/ML 1 ML VIAL IV ONE (05:49)
[2023-05-19] MEDS ORDERED: ONDANSETRON 4 MG/2 ML VIAL IVP ONE (05:49)
[2023-05-19] MEDS ORDERED: SCOPOLAMINE 1 MG/72 HR PATCH TRANSDERM ONE (05:49)
[2023-05-19] MEDS ORDERED: LACTATED RINGERS 1,000 ML IV SCH (05:49)
[2023-05-19] MEDS ORDERED: MIDAZOLAM 2 MG/2 ML VIAL IVP ONE (06:53)
[2023-05-19] MEDS ORDERED: MIDAZOLAM 2 MG/2 ML VIAL IV PRN (07:00)
[2023-05-19] MEDS ORDERED: HYDROmorphone 0.5 MG/0.5 ML SYRINGE IVP PRN (07:00)
[2023-05-19] MEDS ORDERED: MIDAZOLAM 2 MG/2 ML VIAL ONE (07:10)
[2023-05-19] MEDS ORDERED: diphenhydrAMINE 50 MG/ML 1 ML VIAL ONE (07:10)
[2023-05-19] MEDS ORDERED: PROPOFOL 10 MG/ML 20 ML VIAL IV ONE (07:10)
[2023-05-19] MEDS ORDERED: fentaNYL (PF) 50 MCG/ML 2 ML AMP ONE (07:10)
[2023-05-19] MEDS ORDERED: NEOSTIGMINE 1 MG/ML 10 ML VIAL ONE (07:10)
[2023-05-19] MEDS ORDERED: SUCCINYLCHOLINE CHLORIDE 200 MG/10 ML VIAL IV ONE (07:10)
[2023-05-19] MEDS ORDERED: LIDOCAINE 1% INJ 10MG/ML (20 ML MDV) ONE (07:10)
[2023-05-19] MEDS ORDERED: GLYCOPYRROLATE 0.2 MG/ML 2 ML VIAL ONE (07:10)
[2023-05-19] MEDS ORDERED: MORPHINE SULFATE (PF) 0.3 MG/0.3 ML SYR ONE (07:10)
[2023-05-19] MEDS ORDERED: ROCURONIUM 10 MG/ML (5 ML VIAL) IV ONE (07:10)
--- NOTE | 2023-05-19 08:04 | P.ANPRN ---
Procedure Note - Anesthesia - Epidural/Spinal Spinal Date of Procedure: 05/19/23 Location of Patient: PreOp Indication: Acute Post-Operative Pain, Requested by Surgeon Sedation Type: Sedate with meaningful contact maintained Preparation: Sterile Prep Position: Sitting Catheter: None Needle Guage: 25 Narrative: After the informed consent was obtained and all the questions answered, Patient was positioned in sitting posture. The back was cleaned and draped after palpating the L3-L4 interspace. 3 mL of 1% lidocaine infiltrated into the aforementioned space. A 25-gauge Whittacre needle was introduced into the space and a clear flow of CSF was obtained. No blood was aspirated. 300 g of Duramorph and 25 g fentanyl drawn up with a Filter Needle and injected into the spinal space under aseptic precautions. Needle was withdrawn and the puncture major with a platelet dressed with Band-Aid. Patient tolerated the procedure very well with no apparent complications noted. Blood Aspirated: No Pain Paresthesia on Injection Noted: No Events: Uneventful and Well Tolerated
[2023-05-19] MEDS ORDERED: BUPIVACAINE (PF) 0.25% 30 ML VIAL SQ ONE ×2 (08:12→08:42)
[2023-05-19] MEDS ORDERED: LACTATED RINGERS 1,000 ML IV ONE (08:29)
--- NOTE | 2023-05-19 09:01 | P.OP ---
Date of Procedure: 05/19/23 Preoperative Diagnosis: Menorrhagia with irregular cycle Post-endometrial ablation syndrome Postoperative Diagnosis: Same Procedure(s) Performed: Total laparoscopic hysterectomy with bilateral salpingectomy with da Sander Diagnostic cystoscopy Anesthesia: GETA, spinal (Duramorph with fentanyl) Surgeon: Leonila Penaloza Electro Mechanical Designer #1: Gayle Saavedra Estimated Blood Loss (ml): 25 Pathology: other (Uterus with cervix and bilateral fallopian tubes) Condition: stable Disposition: floor Indications for Procedure: This is a 38 y.o. female, 0, who presents for total laparoscopic hysterectomy with bilateral salpingectomy with Davinci and diagnostic cyst oscopy, possible total abdominal hysterectomy with bilateral salpingooophorectomy. She complains of heavy menses lasting 10-14 days. Her menses improved after her endometrial ablation for about 3 months, but now she's back to heavy periods. She wants definitive surgical treatment. Operative Findings: Uterus is small with small fibroids noted. Evidence of previous tubal ligation was noted. Normal ovaries are noted bilaterally. There were some fine adhesions from the omentum to the left side of the pelvis. Description of Procedure: The patient was taken to the operating room where she is placed in the dorsal lithotomy position on a pink pad. Her arms are tucked at her sides and cushioned. When she is correctly position, anesthesia was given. Tilt test was performed. She is prepped and draped in the normal sterile fashion. Next a weighted speculum was placed in the patient's vagina. A right angle retractor is used to visualize the cervix. The anterior lip of the cervix is grasped with a single-tooth tenaculum. Uterus is sounded to 6 cm. Cervix is gently dilated with Armstrong dilators. Next the cervix is measured at 4 cm. 0 Vicryl stitches are placed at the 3 and 9:00 positions on the cervix and held. Next the HUMI manipulator is placed within the cervix, the balloon is inflated, and then the 0 Vicryl sutures are brought through the HUMI and then the cervical cup is pressed against the cervix until the click is heard. The uterus is anteverted and then marked on the abdomen. Next the Mckeon catheter is inserted into the bladder. Gloves are changed and attention is turned to the abdomen. An incision is made above the umbilicus approximately 8 cm above the top of the uterus and then a 5 mm disposable bladeless trocar is inserted under direct visualization with low flow. Once inside high flow is turned on and intra-abdominal contents were inspected. Another incision is made on the right side approximately 8 cm lateral to the umbilicus in the midline and a 8 mm da Sander port is placed under direct visualization. The same procedure is carried out on the left side. Next an optometry assistant port is placed approximately 6 cm superior to the left da Sander port and lateral to the camera port using a 12 mm trocar under direct visualization. Next the 5 mm camera sleeve is replaced with an 8 mm da Sander port. Next the da Sander robot is docked to the patient from her right side. The ports are attached to the arms. Smoke evacuator is also attached. The camera is inserted and then a monopolar scissors is placed through the right port and a vessel sealer was placed through the left port under direct visualization. Energy is attached to both ports. At this time I broke scrub to go to the robot console. The fine adhesions on the left fallopian tube were then grasped with the vessel sealer, cauterized and cut. The mesosalpinx is then cauterized with the vessel sealer and then cut on the distal end of the tube on the left. The end of the fallopian tube was then removed through the optometry assistant port. Next the round ligament on the left is grasped with the vessel sealer and cauterized and cut. The broad ligament was then opened up posteriorly with monopolar cautery. Uterine arteries are then grasped with the vessel sealer, cauterized, and cut. Monopolar scissors were then used to carefully dissect the bladder reflection and the bladder flap is created. Next attention is turned to the right side of the pelvis. The end of the right fallopian tube is grasped and the vessel sealer is used to cauterize and then cut the mesosalpinx. The distal end of the right fallopian tube was then removed through the optometry assistant port. The round ligament was grasped with the vessel sealer, cauterized and then cut. The posterior leaf of the broad ligament is then opened up to the uterosacral area. Uterine arteries are grasped with vessel sealer and then cauterized and cut. Next the uterus is re troverted and the balloon is inflated. Monopolar scissors are used to cut through the vaginal cuff along the HUMI cuff anteriorly. This is carried around to the left side again using monopolar and bipolar energy. The uterus is anteverted and then the posterior cuff is cut along the HUMI cuff using monopolar scissors. The remainder of the right side of the cuff is removed with monopolar and bipolar energy. Once the uterus is freed it is removed through the vagina. Monopolar and bipolar energy are used to cauterize any small bleeders left behind. Next the arms are switched out to the right arm with Jay suture cut and the left arm with a Jules grasper. An O-Stratafix suture is then used to suture from the right side of the cuff across to the left side in a running fashion after securing the suture with the small loop on the end. Once the left side of the cuff was reached, a couple more sutures were placed going towards the right side to secure the suture. Suture was then cut and removed from the field. Irrigation was carried out. Good hemostasis was noted. Picture is taken. Next the instruments are removed from the arms. I regowned and cystoscopy was then performed. Both ureteral orifices are visualized with flow. Cystoscopy was then completed and Mckeon catheter was replaced. Clear urine was noted. The optometry assistant sutured the incisions in a subcuticular fashion with 4-0 Vicryl suture. Incision sites were injected with quarter percent Marcaine. All sponge and needle counts are correct. Patient is taken to recovery room in stable condition.
[2023-05-19] MEDS ORDERED: METOCLOPRAMIDE 5 MG/ML 2 ML VIAL IVP PRN (09:46)
[2023-05-19] MEDS ORDERED: ONDANSETRON 4 MG/2 ML VIAL IVP PRN (09:46)
[2023-05-19] MEDS ORDERED: KETOROLAC 15 MG/ML 1 ML VIAL IVP PRN (09:46)
[2023-05-19] MEDS ORDERED: SIMETHICONE 80 MG CHEWABLE PO PRN (09:46)
[2023-05-19] MEDS ORDERED: ZOLPIDEM 5 MG TAB PO PRN (09:46)
[2023-05-19 09:51] VITALS: RESP 16
[2023-05-19] MEDS ORDERED: ACETAMINOPHEN IV (For NPO) 1,000 MG in EMPTY BAG 1 BAG IVPB ONE (10:15)
[2023-05-19] MEDS: SENNOSIDES-DOCUSATE SODIUM 1 EACH TAB PO SCH (10:26)
[2023-05-19] MEDS: diphenhydrAMINE 50 MG/ML 1 ML VIAL IVP PRN ×3 (10:37→23:18)
[2023-05-19] MEDS ORDERED: NALBUPHINE 10 MG/ML (10 ML MDV) IV PRN (11:45)
[2023-05-19] MEDS: IBUPROFEN 600 MG TAB PO PRN (23:17)
[2023-05-20] MEDS: SENNOSIDES-DOCUSATE SODIUM 1 EACH TAB PO SCH (01:25)
[2023-05-20] MEDS: IBUPROFEN 600 MG TAB PO PRN (06:08)
[2023-05-20 07:20] LABS: Basophils # (A) 0.1 k/uL (0-0.2); Basophils % (A) 1 %; Eosinophils % (A) 1 %; HCT 35.4 % (34.0-46.0); HGB 11.9 gm/dL (11.4-16.0); Lymphocytes # (A) 2.8 k/uL (1.0-4.8); Lymphocytes % (A) 31 %; MCHC 33.6 g/dL (31.0-37.0); MCV 92.1 fL (80.0-100.0); Mean Platelet Volume 7.6; Monocytes # (A) 0.5 k/uL (0-1.0); Monocytes % (A) 6 %; Neutrophils # (A) 5.6 k/uL (1.3-7.7); Neutrophils % (A) 61 %; Platelet Count 239 k/uL (150-450); RBC 3.85 m/uL (3.80-5.40); RDW 12.7 % (11.5-15.5); WBC 9.2 k/uL (3.8-10.6)
[2023-05-20] MEDS ORDERED: ACETAMINOPHEN TAB 325 MG TAB PO PRN (07:32)
[2023-05-20 08:41] VITALS: BP 98/57; PULSE 80; TEMP 98.3
--- NOTE | 2023-05-20 08:50 | P.DS ---
Providers Date of admission: 05/19/2003 Expected date of discharge: 05/20/23 Attending physician: Leonila Penaloza Primary care physician: Stated None - Discharge Diagnosis(es) (1) Post endometrial ablation syndrome Current Visit: No Status: Acute (2) Menorrhagia with irregular cycle Current Visit: No Status: Acute Hospital Course: This is a 38-year-old female who underwent a total laparoscopic hysterectomy with bilateral salpingectomy and diagnostic cystoscopy on 05/19/2023. Postoperatively she has done well. She is passing some flatus but no bowel movement yet. Bleeding has been minimal. She is urinating without difficulty. Vital signs are stable. Abdomen is soft with positive bowel sounds 4. Incision dressings are dry. Extremities show negative Homans. Impression is status post the above noted procedure postoperative day #1. Plan is to discharge home today. Routine postoperative instructions are given. She is advised that she may shower but no tub baths for at least 1 week. No heavy lifting. No intercourse for at least 6 weeks. She will be given a prescription for ibuprofen and a few oxycodone. She has been counseled regarding opioid use. She is advised to follow up in the office next Tuesday for a postoperative check. She is advised to call the office if she has any further questions or concerns prior to her appointment time. Procedures: Total laparoscopic Hysterectomy with bilateral salpingectomy and diagnostic cyst oscopy on 05/19/2023 Patient Condition at Discharge: Stable Plan - Discharge Summary Discharge Rx Participant: Yes New Discharge Prescriptions: New Ibuprofen [Motrin] 600 mg PO Q6HR PRN #60 tab PRN Reason: Mild Discomfort oxyCODONE HCL [OxyIR] 5 mg PO Q6H PRN 3 Days #12 tab PRN Reason: Moderate To Severe Pain (4-10) No Action Ibuprofen [Advil Migraine] 200 mg PO DIRECTED PRN PRN Reason: Migraine Headache Discharge Medication List Ibuprofen [Advil Migraine] 200 mg PO DIRECTED PRN 05/12/23 [History] Ibuprofen [Motrin] 600 mg PO Q6HR PRN #60 tab 05/20/23 [Rx] oxyCODONE HCL [OxyIR] 5 mg PO Q6H PRN 3 Days #12 tab 05/20/23 [Rx] Follow up Appointment(s)/Referral(s): Leonila Penaloza DO [Doctor of Osteopathic Medicine] - 05/25/23 Patient Instructions/Handouts: *[facility] - (Anesthesia) Discharge Instructions Outpatient Surgery, *[facility] - Scopalamine Patch Instructions Activity/Diet/Wound Care/Special Instructions: Activity as tolerated. Diet as tolerated. May shower, but no tub baths for at least 1 week. No intercourse for at least 6 weeks. No heavy lifting, bending, stooping, repetitive motions. Discharge Disposition: HOME SELF-CARE
== END 2023-05-20 09:38 | disposition home or self-care (01) ==
LOC: OR 05:39 → 4FBP 08:59 → OR 05-20 09:38
PROVIDERS: ATTEND Obstetrics & Gynecology
DX: D25.1 Intramural leiomyoma of uterus (principal); I25.2 Old myocardial infarction; Z91.030 Bee allergy status; Z91.040 Latex allergy status
CPT/HCPCS: 58571; 81025; 85025; 88307; J2250; J1200; J1100; J2300; J0690; J2405; J0131; J1885; J0665

== ENCOUNTER → 2023-06-15 | Outpatient (CLI) | payer BC ==
--- NOTE | 2023-06-16 10:56 | US ---
EXAMINATION TYPE: US pelvic complete DATE OF EXAM: 06/15/2023 COMPARISON: None CLINICAL INDICATION: Female, 38 years old with history of G89.18 OTHER ACUTE POSTPROCEDURAL PAIN; Pat ient states hx of hysterectomy and one sided oophorectomy a month ago, however is unsure of what side . Patient still bleeding post hysterectomy TECHNIQUE: Transabdominal (TA). Transabdominal sonographic images of the pelvis were acquired. EXAM MEASUREMENTS: Uterus: Surgically absent Endometrial Stripe: Surgically absent Right Ovary: 1.6 x 2.4 x 1.2 cm Left Ovary: 2.7 x 2.1 x 3.1 cm 1. Uterus: Surgically absent 2. Endometrium: Surgically absent 3. Right Ovary: Likely ovarian tissue despite patient stating unilateral oophorectomy 4. Left Ovary: wnl as best visualized 5. Bilateral Adnexa: Obscured by overlying bowel gas 6. Posterior cul-de-sac: No fluid seen IMPRESSION: 1. Suspect visualization of both ovaries despite patient stating prior right oophorectomy. Clinically correlate. 2. Status post hysterectomy.
== END | disposition home or self-care (01) ==
LOC: RADUSWWP 15:45
PROVIDERS: ATTEND Obstetrics & Gynecology
DX: G89.18 Other acute postprocedural pain (principal); N99.820 Postprocedural hemorrhage of a genitourinary system organ or structure following a genitourinary system procedure; Z90.721 Acquired absence of ovaries, unilateral; Z90.710 Acquired absence of both cervix and uterus
CPT/HCPCS: 76856

== ENCOUNTER → 2023-09-19 | Outpatient (CLI) | payer BC ==
[2023-09-19 17:39] LABS: Chol/HDL Ratio 4.29 Ratio; LDL Cholesterol,Calculated 159.3 mg/dL (0.0-131.0)
[2023-09-19 17:40] LABS: T4, Free (Free Thyroxine) 1.13 ng/dL (0.80-1.80)
[2023-09-19 18:01] LABS: ALT 21 U/L (8-44); AST 23 U/L (13-35); Albumin 4.2 g/dL (3.8-4.9); Albumin/Globulin Ratio 1.91 Ratio (1.60-3.17); Alkaline Phosphatase 44 U/L (41-126); BUN/Creat Ratio 21.57 Ratio (12.00-20.00); Blood Urea Nitrogen 15.1 mg/dL (9.0-27.0); Calcium 9.2 mg/dL (8.7-10.3); Carbon Dioxide 21.4 mmol/L (21.6-31.8); Chloride 106 mmol/L (96-109); Globulin 2.2 g/dL (1.6-3.3); Glucose 87 mg/dL (70-110); Potassium 4.6 mmol/L (3.5-5.5); Sodium 138 mmol/L (135-145); Total Bilirubin 0.4 mg/dL (0.3-1.2); Total Protein 6.4 g/dL (6.2-8.2)
[2023-09-19 18:05] LABS: Basophils # (A) 0.05 X 10*3/uL (0.00-0.10); Crenated RBC 2+; Eosinophils # (A) 0.08 X 10*3/uL (0.04-0.35); Eosinophils % (A) 1.7 %; HCT 40.7 % (37.2-46.3); HGB 13.5 g/dL (12.0-15.0); Lymphocytes # (A) 1.62 X 10*3/uL (0.90-5.00); Lymphocytes % (A) 33.5 %; MCH 29.9 pg (27.0-32.0); MCHC 33.2 g/dL (32.0-37.0); MCV 90.2 FL (80.0-97.0); Mean Platelet Volume 10.5 FL (9.5-12.2); Monocytes # (A) 0.51 X 10*3/uL (0.20-1.00); Monocytes % (A) 10.5 %; NRBC Per 100 WBC 0 X 10*3/uL (0.00-0.01); Neutrophils # (A) 2.55 X 10*3/uL (1.80-7.70); Neutrophils % (A) 52.7 %; Platelet Count 268 X 10*3/uL (140-440); RBC 4.51 X 10*6/uL (4.10-5.20); RDW 13.4 % (11.5-14.5); WBC 4.84 X 10*3/uL (4.50-10.00)
--- NOTE | 2023-09-20 18:45 | MM ---
Reason for Exam: Screening (asymptomatic). Baseline mammogram. Patient History: Menarche at age 12. Patient has no children. Hysterectomy at age 38. Risk Values: Denisa 5 year model risk: 0.5%. NCI Lifetime model risk: 12.3%. Prior Study Comparison: Patient's first Mammogram. Tissue Density: The breasts are heterogeneously dense, which may obscure small masses. Findings: Analyzed By CAD. Posterior-superior asymmetric densities in both breasts seen on the MLO views incompletely disperses on 3-D images. These may represent superimposition shadow but further evaluation is recommended. No suspicious microcalcification or other discrete abnormality is seen. Overall Assessment: Incomplete: need additional imaging evaluation, BI-RAD 0 Management: Special View Mammogram of both breasts. Diagnostic Breast Ultrasound of both breasts. Additional views to include spot 3-D MLO and 3 lateral views. Additional bilateral upper outer quadrant ultrasounds. [facility] will attempt to contact patient to return for supplemental views and ultrasound if indicated. Electronically signed and approved by: Kathleen Bradshaw M.D. Radiologist
== END | disposition home or self-care (01) ==
LOC: RADMAMWWP 07:20
PROVIDERS: ATTEND Family Medicine
DX: Z12.31 Encounter for screening mammogram for malignant neoplasm of breast (principal); R73.9 Hyperglycemia, unspecified; E07.9 Disorder of thyroid, unspecified; E55.9 Vitamin D deficiency, unspecified
CPT/HCPCS: 77063; 77067; 80053; 80061; 82306; 83036; 84439; 84443; 85025

== ENCOUNTER → 2023-09-22 | Outpatient (CLI) | payer BC ==
--- NOTE | 2023-09-22 07:27 | MM ---
Reason for Exam: Additional evaluation requested from abnormal screening. Last screening mammogram was performed less than 1 month ago. Patient History: Menarche at age 12. Patient has no children. Hysterectomy at age 38. Risk Values: Denisa 5 year model risk: 0.5%. NCI Lifetime model risk: 12.3%. Prior Study Comparison: 09/19/2023 Bilateral MG 3D screening mammo w/cad, [facility]. Tissue Density: The breasts are heterogeneously dense, which may obscure small masses. Findings: Analyzed By CAD. The questioned area of posterior superior asymmetric density on the right MLO view does not persist on additional views. Findings compatible with superimposition shadow. Similarly, the left MLO posterior superior asymmetric density becomes less defined. Nodularity here shows a notch suggesting a low axillary tail lymph node. This can be reassessed at 6 months to demonstrate stability. Overall Assessment: Probably benign, BI-RAD 3 Management: Diagnostic Mammogram of the left breast in 6 months. . Results were given to the patient verbally at the time of exam. Patient should continue monthly self-breast exams. A clinical breast exam by your physician is recommended on an annual basis. This exam should not preclude additional follow-up of suspicious palpable abnormalities. Note on Denisa scores and lifetime risk: 1. A Denisa score greater than 3% is considered moderate risk. If this is the case, consider specialist referral to assess eligibility for a risk reducing agent. 2. If overall lifetime risk for the development of breast cancer is 20% or higher, the patient may qualify for future screening with alternating mammogram and breast MRI. Electronically signed and approved by: Kathleen Bradshaw M.D. Radiologist
== END | disposition home or self-care (01) ==
LOC: RADMAMWWP 06:52
PROVIDERS: ATTEND Family Medicine
DX: R92.333 Mammographic heterogeneous density, bilateral breasts (principal)
CPT/HCPCS: 77062; 77066